=== PATIENT | male | born 1990 | race American Indian/Alaskan Native ===

== ENCOUNTER 2018-08-02 18:24 | Emergency (ER) | payer SELFPAY ==
[2018-08-02 18:48] VITALS: BP 129/81
== END 2018-08-02 20:08 | disposition left against medical advice (07) ==
LOC: ED 18:24
DX: Z76.0 Encounter for issue of repeat prescription (principal); Z53.21 Procedure and treatment not carried out due to patient leaving prior to being seen by health care provider